=== PATIENT | male | born 2000 | race African-American/Black ===

== ENCOUNTER 2022-04-04 16:26 | Emergency (ER) | payer SELFPAY ==
[~2022-04-04] VITALS: Ht 188 cm; Wt 77.1 kg
[2022-04-04 16:38] VITALS: BP_SYST 121
[2022-04-04] MEDS ORDERED: CYCL10TA24 PO (19:28)
[2022-04-04] MEDS ORDERED: IBUP-1969 PO (19:30)
== END 2022-04-04 21:54 | disposition home or self-care (01) ==
LOC: SED 16:26
DX: S29.012A Strain of muscle and tendon of back wall of thorax, initial encounter (principal); R07.89 Other chest pain; Z88.8 Allergy status to other drugs, medicaments and biological substances; Z79.899 Other long term (current) drug therapy; V49.49XA Driver injured in collision with other motor vehicles in traffic accident, initial encounter; Y93.89 Activity, other specified; Y92.89 Other specified places as the place of occurrence of the external cause; Y99.8 Other external cause status
CPT/HCPCS: 71046-TC; 72072-TC; 93005; 99284